=== PATIENT | male | born 1965 | race Caucasian/White ===

== ENCOUNTER → 2017-01-28 | Outpatient (CLI) | payer BC ==
--- NOTE | 2017-01-28 15:57 | DIAGNOSTIC IMAGING REPORT ---
CHEST 2 VIEWS ROUTINE CLINICAL HISTORY: COUGH COMPARISON STUDY: No previous studies for comparison. FINDINGS: The cardiac and mediastinal contours are normal. There is no evidence of focal pulmonary consolidation. There is no evidence of failure. No pleural effusions are visualized.[ IMPRESSION: No active disease in the chest. Electronically signed by: Neo Bowie M.D. 01/28/2017 3:56 PM Dictated Date/Time: 01/28/2017 3:56 PM
== END | disposition home or self-care (01) ==
LOC: C.RAD1850 15:44
PROVIDERS: ATTEND Family Medicine
DX: R05 Cough (principal)